=== PATIENT | female | born 1940 | race Two or more races ===

== ENCOUNTER 2022-07-06 18:47 | Emergency (ER) | payer OTHER ==
[~2022-07-06] VITALS: Ht 157.5 cm; Wt 54.4 kg
--- NOTE | 2022-07-06 19:21 | NUR ---
Pt AOx4 able to express her concerns. Patient states she had a ground level fall 2 days ago, hematoma on outter Right thigh. Patient states she is in pain 8/10. VSS, will continue to monitor
--- NOTE | 2022-07-06 19:44 | NUR ---
MOISÉS [phone]
--- NOTE | 2022-07-06 19:56 | NUR ---
XRAY DONE AT BEDSIDE
--- NOTE | 2022-07-06 20:27 | NUR ---
SEEN BY DR COLEMAN AT BEDSIDE
[2022-07-06] MEDS ORDERED: IBUPROFEN 600 MG TABLET ONE (20:30)
[2022-07-06] MEDS ORDERED: IBUPROFEN 600 MG TABLET PO ONE (20:30)
--- NOTE | 2022-07-06 21:29 | NUR ---
ELIAS WRAP APPLIED TO AFFECTED LEG. PATIENT BEING TRAINED BY EMT TO USE WALKER.
[2022-07-06] MEDS ORDERED: IBUP-1955 PO (22:00)
--- NOTE | 2022-07-06 22:17 | NUR ---
Patient discharged to home in stable condition. Written and verbal after care instructions given. Patient verbalizes understanding of instruction.
[2022-07-06 22:18] VITALS: BP 135/70
== END 2022-07-06 22:18 | disposition home or self-care (01) ==
LOC: ER 18:51
DX: S70.11XA Contusion of right thigh, initial encounter (principal); Z90.11 Acquired absence of right breast and nipple; Z88.5 Allergy status to narcotic agent; W08.XXXA Fall from other furniture, initial encounter; Y93.89 Activity, other specified; Y92.89 Other specified places as the place of occurrence of the external cause; Y99.8 Other external cause status
CPT/HCPCS: 73502